=== PATIENT | male | born 1990 ===

== ENCOUNTER 2017-09-25 06:31 | Day surgery (SDC) | payer OTHER ==
[~2017-09-25] VITALS: Ht 185.4 cm; Wt 87.5 kg
[~2017-09-25 06:31] MED LIST: CEPH500 PO; HYDACE5 PO
== END 2017-09-25 22:49 | disposition home or self-care (01) ==
LOC: ORSCMMR 06:31 → ORD 07:30 → ORSCMMR 22:49
PROVIDERS: Surgery
PROC: 0WJP8ZZ Inspection of Gastrointestinal Tract, Via Natural or Artificial Opening Endoscopic Approach (ICD-10-PCS; principal; 2017-09-25 07:30)
DX: K61.1 Rectal abscess (principal)
CPT/HCPCS: J1100; J1885; J2001; J2250; J2405; J3010; J7120